=== PATIENT | male | born 1980 | race Caucasian/White ===

== ENCOUNTER → 2021-08-12 | Outpatient (CLI) | payer BC | END | disposition home or self-care (01) | LOC: RAD 08:20 | PROC: BP191ZZ Fluoroscopy of Left Shoulder using Low Osmolar Contrast (ICD-10-PCS; principal; 2021-08-12) | DX: M75.112 Incomplete rotator cuff tear or rupture of left shoulder, not specified as traumatic (principal) | CPT/HCPCS: 73040; 73222; A9577; Q9967 ==